=== PATIENT | female | born 1985 | race Caucasian/White ===

== ENCOUNTER 2018-01-06 02:10 | Emergency (ER) | payer OTHER ==
[2018-01-06 02:41] VITALS: TEMP 98.9
[2018-01-06] MEDS ORDERED: HYDROcodone/APAP 5-325MG 1 EACH TAB PO STA (03:46)
[2018-01-06] MEDS ORDERED: KETAMINE 10 MG/ML 20 ML VIAL IV ONE (06:33)
--- NOTE | 2018-01-06 06:45 | ED ---
Upper Extremity HPI - General Source: patient Mode of arrival: ambulatory Limitations: no limitations <Nasima Connors - Last Filed: 01/06/18 07:27> <Antonio Rocha - Last Filed: 01/06/18 08:37> - General Chief Complaint: Extremity Injury, Upper Stated Complaint: Wrist injury Time Seen by Provider: 01/06/18 03:43 - History of Present Illness Initial Comments: 32-year-old female patient presents to the emergency department today sent by urgent care for evaluation of right wrist fracture. Patient states that around 8:30 this evening she did a back flip and landed wrong on her wrist. Patient states she had immediate pain so went to urgent care for further evaluation. Patient states that the x-ray showed a severe fracture with some angulation so they splinted her and sent her here for further evaluation. She denies any numbness or tingling to the hand or fingers. States that her pain is under control. She denies hitting her head or losing consciousness during the fall. She denies any other injuries. Patient does admit to drinking some alcohol this evening. Patient denies any headache, neck pain, back pain, chest pain, shortness of breath, dizziness, weakness, abdominal pain, nausea, vomiting, or difficulties with bowel movements or urination. (Nasima Connors) - Related Data Previous Rx's Medication Instructions Recorded Hydrocodone/Acetaminophen [Lodi 1 tab PO Q6HR PRN #12 tab 01/06/18 5-325] Allergies Allergy/AdvReac Type Severity Reaction Status Date / Time No Known Allergies Allergy Verified 01/06/18 02:41 Review of Systems ROS Other: All systems not noted in ROS Statement are negative. <Nasima Connors - Last Filed: 01/06/18 07:27> ROS Other: All systems not noted in ROS Statement are negative. <Antoino Rocha - Last Filed: 01/06/18 08:37> ROS Statement: Those systems with pertinent positive or pertinent negative responses have been documented in the HPI. Past Medical History Past Medical History: No Reported History History of Any Multi-Drug Resistant Organisms: None Reported Past Surgical History: No Surgical Hx Reported Past Psychological History: No Psychological Hx Reported Smoking Status: Current every day smoker Past Alcohol Use History: Daily Past Drug Use History: None Reported <Nasima Connors - Last Filed: 01/06/18 07:27> General Exam Limitations: no limitations General appearance: alert, in no apparent distress, other (This is a well- developed, well-nourished adult female patient in no acute distress. Vital signs upon presentation are temperature 98.9F, pulse 89, respirations 18, blood pressure 115/76, pulse ox 100% on room air.) Eye exam: Present: normal appearance, PERRL, EOMI. Absent: scleral icterus, conjunctival injection, periorbital swelling ENT exam: Present: normal exam, normal oropharynx, mucous membranes moist Respiratory exam: Present: normal lung sounds bilaterally. Absent: respiratory distress, wheezes, rales, rhonchi, stridor Cardiovascular Exam: Present: regular rate, normal rhythm, normal heart sounds. Absent: systolic murmur, diastolic murmur, rubs, gallop, clicks Extremities exam: Present: other (Patient has OCL splint in place on the right wrist. Fingers are pink, warm, and dry. Cap refills less than 3 seconds. Patient does have distal sensation and is able to move the fingers.) Neurological exam: Present: alert, oriented X3, CN II-XII intact Psychiatric exam: Present: normal affect, normal mood Skin exam: Present: warm, dry, intact, normal color. Absent: rash <Nasima Connors M - Last Filed: 01/06/18 07:27> Vital Signs 01/06/18 01/06/18 01/06/18 02:27 05:08 06:24 Temperature 98.9 F Pulse Rate 89 85 95 Respiratory 18 18 18 Rate Blood Pressure 115/76 108/58 109/57 O2 Sat by Pulse 100 95 97 Oximetry 01/06/18 01/06/18 01/06/18 06:55 07:05 07:12 Temperature Pulse Rate 100 114 H 115 H Respiratory 18 15 18 Rate Blood Pressure 116/65 129/67 138/73 O2 Sat by Pulse 100 98 99 Oximetry 01/06/18 01/06/18 07:30 07:55 Temperature Pulse Rate 80 98 Respiratory 20 18 Rate Blood Pressure 116/60 110/61 O2 Sat by Pulse 98 98 Oximetry Procedures - Orthopedic Fracture Reduction Fracture #1 Consent Obtained: verbal consent Time Out Performed: Yes Side: right Fracture Reduction Location: radius Analgesia: procedural sedation Technique: direct manipulation Post Reduction X-rays Demonstrate: anatomical reduction Post-Reduction Neuro Exam: intact Post-Reduction Vascular Exam: intact Splint Applied: Yes Patient Tolerated Procedure: well - Procedural Sedation Procedural Sedation Start Time: 06:40 Procedural Sedation Stop Time: 06:55 Indications: fracture/dislocation reduction ASA Class: I Mallampati Airway Score: 1 Time of Last PO Intake: 02:00 Preparation: hall monitor applied, pulse oximeter, capnometry used Ketamine: IV Ketamine Dose: 60 Complications: none (no complications post procedural sedation) <Antonio Rocha - Last Filed: 01/06/18 08:37> Medical Decision Making <Nasima Connors - Last Filed: 01/06/18 07:27> <Antonio Rocha - Last Filed: 01/06/18 08:37> - Medical Decision Making 32-year-old female patient presented to the emergency department today for evaluation of right wrist fracture. X-rays from urgent care were reviewed and did show a displaced distal radius fracture. My attending Dr. Rocha was in and did perform conscious sedation with closed reduction of the right wrist. Postreduction x-rays were obtained and did show improvement of the angulation. Patient was resplinted with a short arm posterior OCL. Neurovascular status intact after splint application. Patient will be given prescriptions for pain management. She is educated regarding ice and elevation. She is instructed to follow-up with orthopedics for recheck as soon as possible. Return parameters discussed in detail. She verbalizes understanding and agrees with this plan. (Nasima Connors) Disposition Is patient prescribed a controlled substance at d/c from ED?: Yes When asked, does pt state using other controlled substances?: No If prescribed controlled substance>3 days was MAPS reviewed?: Prescribed <3 Days If opioid is for acute pain is fill amount 7 days or less?: Yes If Rx opioid, was Start Talking consent form obtained?: Yes Time of Disposition: 07:29 <Nasima Connors - Last Filed: 01/06/18 07:27> <Antonio Rocha - Last Filed: 01/06/18 08:37> Clinical Impression: Fracture of right distal radius Disposition: HOME SELF-CARE Condition: Good Instructions: Wrist Fracture in Adults (ED), Splint Care (ED) Additional Instructions: Rest, ice, and elevate the right wrist. Ice the wrist 20 minutes at a time at least 4x daily. Keep splint clean and dry. Do not remove or get wet. Follow up with orthopedics for recheck within 1-2 days. Take medication as directed. Return immediately for any new, worsening, or concerning symptoms. Prescriptions: Hydrocodone/Acetaminophen [Lodi 5-325] 1 tab PO Q6HR PRN #12 tab PRN Reason: Pain Referrals: None,Stated [Primary Care Provider] - 1-2 days Maximino Parry DO [Doctor of Osteopathic Medicine] - 1-2 days
--- NOTE | 2018-01-06 07:43 | XR ---
Right wrist limited HISTORY: Post reduction 2 views of the right wrist No comparisons Distal metaphyseal right radial intra-articular fracture is comminuted and shows near anatomic alignm ent, ulnar styloid fracture is present with minimal displacement. No evident dislocation. There is an overlying splint. IMPRESSION: Fracture reduction follow-up
[2018-01-06 07:56] VITALS: BP 110/61; PULSE 98; RESP 18
[2018-01-06] MEDS ORDERED: ONDANSETRON 4 MG/2 ML VIAL IVP STA (08:05)
[2018-01-06] MEDS ORDERED: ONDANSETRON 4 MG ODT STARTER PACK 2 TAB BTL PO STA (08:05)
== END 2018-01-06 08:36 | disposition home or self-care (01) ==
LOC: EC 02:10
DX: S52.501A Unspecified fracture of the lower end of right radius, initial encounter for closed fracture (principal); F17.200 Nicotine dependence, unspecified, uncomplicated; X50.1XXA Overexertion from prolonged static or awkward postures, initial encounter; Y93.89 Activity, other specified
CPT/HCPCS: 73100; 99283; 25605; 99151; 96374; J2405; S0119

== ENCOUNTER → 2018-01-28 | Outpatient (CLI) | payer OTHER ==
[2018-01-28 14:23] LABS: Basophils % (A) 0 %; Eosinophils # (A) 0.1 k/uL (0-0.7); Eosinophils % (A) 1 %; HCT 47.8 % (34.0-46.0); HGB 15.5 gm/dL (11.4-16.0); Lymphocytes # (A) 2.9 k/uL (1.0-4.8); Lymphocytes % (A) 30 %; MCH 32.7 pg (25.0-35.0); MCHC 32.3 g/dL (31.0-37.0); MCV 101.2 fL (80.0-100.0); Mean Platelet Volume 8.4; Monocytes # (A) 0.6 k/uL (0-1.0); Monocytes % (A) 6 %; Neutrophils % (A) 62 %; Platelet Count 205 k/uL (150-450); RBC 4.73 m/uL (3.80-5.40); RDW 12.3 % (11.5-15.5); WBC 9.6 k/uL (3.8-10.6)
[2018-01-28 14:52] LABS: Anisocytosis (M) Present
== END | disposition home or self-care (01) ==
LOC: LABPAT 12:58
PROVIDERS: ATTEND Orthopaedic Surgery
DX: Z01.812 Encounter for preprocedural laboratory examination (principal); S52.501D Unspecified fracture of the lower end of right radius, subsequent encounter for closed fracture with routine healing
CPT/HCPCS: 36415; 84702; 85025

== ENCOUNTER 2018-01-30 11:57 | Day surgery (SDC) | payer OTHER ==
[2018-01-29 08:39] VITALS: BMI 21.4
--- NOTE | 2018-01-30 08:09 | HP ---
HISTORY AND PHYSICAL CHIEF COMPLAINT: Right wrist pain. 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 She was doing back flips when she jammed her wrist. Initially, she was seen in the emergency room and underwent closed reduction. She subsequently was casted. Now, she is wearing a brace. She notes continued deformity and pain. She denies previous problems. PAST MEDICAL HISTORY: Negative. PAST SURGICAL HISTORY: Negative. CURRENT MEDICATIONS: Naprosyn. She smokes 1 pack per day of tobacco. She admits to social alcohol use. REVIEW OF SYSTEMS: Sixteen-point review of systems otherwise reviewed and is noncontributory. FAMILY HISTORY: Significant for stroke. PHYSICAL EXAMINATION: On examination, the patient is approximately 5 feet 2 inches, 120 pounds of mesomorphic habitus. HEENT exam is nonfocal. Neck is supple. She is nontender about the right shoulder and elbow. She has moderate limitation of pronation and supination right forearm. She is tender over the distal radius. She has large dorsal wrist swelling and dorsal deformity. Light touch is distally intact. 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 A 2+ distal radial pulse is noted. X-rays to include 2 views of the right wrist reviewed in the office show a comminuted distal radius fracture with intra-articular involvement and significant shortening/angulation. There is also significant dorsal comminution. IMPRESSION: Subacute right intra-articular distal radius fracture-displaced. RECOMMENDATIONS: I talked to the patient at length regarding her condition and treatment options. At this point, I recommended proceeding with open reduction and internal fixation. Risks and benefits were discussed at length in layman's terms. We will likely keep the patient for a 23-hour hold postoperatively. MMODL / IJN: [id number] /
[~2018-01-30 11:57] MED LIST: ceFAZolin 1,000 MG in DEXTROSE/WATER 1 50ML.BAG IV ONE
[2018-01-30] MEDS ORDERED: MIDAZOLAM 2 MG/2 ML VIAL ONE ×2 (13:14→14:08)
[2018-01-30] MEDS ORDERED: LIDOCAINE 1% 20 ML VIAL (10MG/ML) FOR IV START INTRADERMA ONE (13:30)
[2018-01-30] MEDS: ONDANSETRON 4 MG/2 ML VIAL ONE ×2 (13:32→13:35)
[2018-01-30] MEDS ORDERED: DEXAMETHASONE SOD PHOSPHATE 10 MG/ML 1 ML VIAL IV ONE ×2 (13:33→13:36)
[2018-01-30] MEDS ORDERED: LACTATED RINGERS 1,000 ML IV ONE (13:35)
[2018-01-30] MEDS ORDERED: MIDAZOLAM 2 MG/2 ML VIAL IVP ONE (13:35)
[2018-01-30] MEDS ORDERED: LIDOCAINE 1% INJ 10MG/ML (20 ML MDV) ONE (14:08)
[2018-01-30] MEDS ORDERED: ROPIVACAINE 5 MG/ML 30 ML VIAL ONE (14:08)
[2018-01-30] MEDS ORDERED: PROPOFOL 10 MG/ML 20 ML VIAL IV ONE (14:08)
[2018-01-30] MEDS ORDERED: fentaNYL (PF) 50 MCG/ML 2 ML AMP ONE (14:08)
[2018-01-30] MEDS ORDERED: HYDROmorphone (PF) 1 MG/ML ONE (14:08)
[2018-01-30] MEDS ORDERED: ROPIVACAINE 5 MG/ML 30 ML VIAL MISCELLANE ONE (14:28)
[2018-01-30] MEDS ORDERED: ceFAZolin 1,000 MG in SODIUM CHLORIDE 0.9% 1,000 ML IRRIGATION ONE (16:00)
[2018-01-30] MEDS ORDERED: ONDANSETRON 4 MG/2 ML VIAL IVP PRN (16:29)
[2018-01-30] MEDS ORDERED: MORPHINE SULFATE 4 MG/ML SYRINGE IV PRN (16:29)
[2018-01-30] MEDS ORDERED: HYDROcodone/APAP 5-325MG 1 EACH TAB PO PRN ×2 (16:29)
[2018-01-30] MEDS ORDERED: NALOXONE 0.4 MG/ML 1 ML VIAL IV PRN (16:29)
[2018-01-30] MEDS ORDERED: MORPHINE SULFATE 2 MG/ML SYRINGE IV PRN (16:29)
--- NOTE | 2018-01-30 16:29 | P.OP ---
Date of Procedure: 01/30/18 Preoperative Diagnosis: Displaced/angulated/comminuted subacute right intra-articular distal radius fracture Postoperative Diagnosis: Same Procedure(s) Performed: Open reduction and internal fixation right intra-articular distal radius fracture Implants: [employer] standard volar distal radial plate [facility]: Keith Hope Estimated Blood Loss (ml): 20 Pathology: none sent Condition: stable Disposition: PACU Indications for Procedure: The patient's a 33-year-old [id number] female who presents after injuring her right wrist approximately 3-1/2 weeks ago. She was noted have a significantly displaced/angulated/comminuted intra-articular distal radius fracture. A discussion of the risks and benefits of operative intervention was made with patient. She opted to proceed. Operative risks to include infection , neurovascular injury, development of nonunion, possible development of malunion, possible development of reflex sympathetic dystrophy and need for subsequent procedures was discussed. She was informed on the significant complexity of this problem in addition to surgical correction of that. Informed consent was obtained. Operative Findings: As below Description of Procedure: The patient was brought to the operating room, and after induction of general anesthesia the right upper shoulder is prepped and draped in normal fashion. The tourniquet was inflated to 250 mmHg. A longitudinal incision extending approximately 6 cm was then made along the volar radial aspect the right wrist extending to the volar wrist crease. The skin was incised sharply. Subcu change tissues were divided bluntly. Electrocautery was used for hemostasis. The flexor carpi radialis tendon sheath was opened. The underlying fascia was opened. The tendon was gently retracted ulnarly and the radial artery radially. The pronator quadratus was elevated off the radial styloid and the distal radius. The fracture site was identified. There was significant healing at this point. The callus was dissected. The fracture was then reduced. A 4-hole volar standard with distal radius plate was placed and provisionally held with K wires/ulnar wires. The overall placement and reduction the fracture was verified with fluoroscopy. Appropriate cortical screws were placed proximally. Smooth locking pegs were placed distally. Final fluoroscopic views to include AP, elevated lateral, and 3 views showed adequate reduction of this complex subacute fracture along with placement of the implant. The wound was irrigated normal saline. The tourniquet was deflated approximate 90 minutes total tourniquet time. The subcu change tissues were reapproximated interrupted 2-0 Vicryl sutures. The skin was reapproximated 3-0 subcuticular running suture. Steri-Strips were applied. A sterile dressing was applied in addition to a volar splint. The patient was then awoken from general anesthesia and transferred to recovery room in good condition. Blood loss estimated at 20 mL. No complications were incurred.
[2018-01-30 19:44] VITALS: RESP 16
[2018-01-30] MEDS: NICOTINE 21MG/24HR PATCH TRANSDERM SCH (21:41)
--- NOTE | 2018-01-30 23:15 | FL ---
EXAMINATION TYPE: FL guidance operating room, XR wrist limited RT DATE OF EXAM: 01/30/2018 CLINICAL HISTORY: Right wrist fracture. TECHNIQUE: Fluoroscopy. Limited intraoperative views right wrist. COMPARISON: Right wrist x-ray January 06, 2018.. FINDINGS: Fluoroscopic guidance was provided during open reduction internal fixation procedure perfo rmed by Dr. Hope. A total of 35 seconds of fluoroscopic time was utilized during the procedure and 3 spot intraoperative images are acquired. Images acquired show placement of volar fixating plate through comminuted intra-articular fracture di stal radial meta-epiphysis. Satisfactory alignment is seen on intraoperative images provided. IMPRESSION: As Above.
[2018-01-31] MEDS: ceFAZolin IN SWFI 2 GM/20 ML SYRINGE IVP SCH ×2 (05:05→07:20)
[2018-01-31] MEDS: NICOTINE 21MG/24HR PATCH TRANSDERM SCH (07:20)
[2018-01-31 07:45] VITALS: BP 101/67; PULSE 90; TEMP 98
--- NOTE | 2018-01-31 10:54 | P.PN ---
Subjective Progress Note Date: 01/31/18 Principal diagnosis: Status post ORIF right distal radius fracture Patient seen today resting in her hospital bed, she appears comfortable. Her pain is controlled at this time. She denies any headaches, lightheadedness, chest pain or shortness of breath. Objective - Vital Signs Vital signs: Vital Signs Temp 98.0 F 01/31/18 07:44 Pulse 90 01/31/18 07:44 Resp 16 01/31/18 07:44 BP 101/67 01/31/18 07:44 Pulse Ox 98 01/31/18 07:44 Intake & Output 01/30/18 01/31/18 01/31/18 18:59 06:59 18:59 Intake Total 851 600 360 Output Total 20 Balance 831 600 360 Intake: IV 751 Oral 100 600 360 Output: Estimated Blood Loss 20 Other: # Voids 1 - Exam Right upper extremity: Postop cast is in good condition and position. She is able to wiggle all the fingers. Sensation to light touch is intact, however cap refills less than 2 seconds. Assessment and Plan Plan: Assessment: Post op day 1 status post ORIF right distal radius fracture Plan: Pain control, we'll discharge home on oral medication Cast instructions were discussed Avoid excess use with the hand Ice and elevate Stable for discharge home today Time with Patient: Less than 30
--- NOTE | 2018-01-31 10:59 | P.DS ---
Providers Date of admission: 01/30/2018 Expected date of discharge: 01/31/18 Attending physician: Keith Hope Primary care physician: Stated None Hospital Course: Date of admission: 01/30/2019 Date of discharge: 01/31/2018 Admission diagnosis: Status post ORIF right distal radius fracture Discharge diagnosis: Same Attending physician: Dr. Hope Surgical procedures: Open reduction internal fixation right distal radius fracture Brief history: Patient is a 33-year-old female with a history of a right wrist injury. She was evaluated in the outpatient setting by Dr. Hope. Surgery was discussed, she opted to proceed with open reduction internal fixation procedure on 01/30/2018. Hospital course: Details of patient's surgery can be found in operative report. Patient tolerated the procedure well and was subsequently transported to orthopedic floor. Patient's orthopeidc and medical care was provided daily. Patient was noted to have a relatively uneventful postoperative course. Patient reported satisfactory pain control with oral pain medications by postoperative day 0. Patient showed satisfactory progress with physical therapy. Patient moved steadily through the program and had no difficulty meeting the goals by postoperative day 1. Given patient's otherwise satisfactory course and having met physical therapy goals, plan is to discharge patient [home] on postoperative day 1. Discharge condition/disposition: Patient will be discharged [home] in stable condition. Discharge medications: Instructions are given on resumption of patient's normal daily medications per primary care recommendation, in addition patient will be prescribed Hardaway 5 mg/325 mg. Discharge instructions: 1. Resume home medications after discharge 2. Pain medication as needed 3. Keep cast covered and dry while showering 4. Avoid excess use 5. Ice and elevate often 6. [facility]-up at [facility] 2 weeks Procedures: Open reduction internal fixation right distal radius fracture Patient Condition at Discharge: Good Plan - Discharge Summary Discharge Rx Participant: Yes New Discharge Prescriptions: New Hydrocodone/Acetaminophen [Hardaway 5-325] 1 each PO Q6HR PRN #28 tab PRN Reason: Pain No Action Naproxen Unknown Dose 1 tab PO DAILY PRN PRN Reason: Pain Discharge Medication List Naproxen Unknown Dose 1 tab PO DAILY PRN 01/23/18 [History] Hydrocodone/Acetaminophen [Hardaway 5-325] 1 each PO Q6HR PRN #28 tab 01/31/18 [Rx] Follow up Appointment(s)/Referral(s): Akshat Watkins, PAC [PHYSICIAN SOIL CONSERVATION TECHNICIAN] - 2 Weeks Activity/Diet/Wound Care/Special Instructions: Discharge instructions: Resume home medications after discharge Pain medication as needed Ice and elevate often Keep covered and dry while showering Avoid excessive use Follow-up [facility] in 2 weeks, please contact office with any questions Discharge Disposition: HOME SELF-CARE
== END 2018-01-31 12:27 | disposition home or self-care (01) ==
LOC: OR 11:57 → 3SUR 16:26 → OR 01-31 12:27
PROVIDERS: ATTEND Orthopaedic Surgery
DX: S52.571A Other intraarticular fracture of lower end of right radius, initial encounter for closed fracture (principal); X58.XXXA Exposure to other specified factors, initial encounter; Y93.43 Activity, gymnastics; F17.210 Nicotine dependence, cigarettes, uncomplicated
CPT/HCPCS: 81025; 73100; 25609; C1713; S4990 ×2; J2250; J1100; J2405 ×2; J0690 ×3; J2001; J3010; J1170; J2795; J2704